=== PATIENT | male | born 2000 | race Caucasian/White ===

== ENCOUNTER 2022-08-23 15:43 | Emergency (ER) | payer OTHER, SELFPAY ==
--- NOTE | ~2022-08-23 | XR_ITS ---
EXAMINATION: XR foot LT min 3V DATE: 08/23/2022 16:05 INDICATION: Left foot pain TECHNIQUE: Dorsoplantar, lateral, and 2 oblique views of the left foot were obtained. COMPARISON: None. FINDINGS: Bone alignment is normal. There is no fracture. There is lateral soft tissue swelling of th e foot near the fifth metatarsal. A posterior calcaneal enthesophyte is noted. IMPRESSION: 1. Soft tissue swelling without acute osseous abnormality. Reviewed, dictated and finalized at location A.
[2022-08-23 15:57] VITALS: BP 121/69; PULSE 75; RESP 16; TEMP 36.5; O2SAT 99
[2022-08-23 16:00] VITALS: BP 121/69; PULSE 75; RESP 16; TEMP 36.5; O2SAT 99
--- NOTE | 2022-08-23 16:06 | ED.LOWEXIN ---
HPI - Extremity Injury (Lower) General Chief Complaint: Extremity Injury, Lower Stated Complaint: Left Foot Toe Pain Time Seen by Provider: 08/23/22 16:06 Source: patient and RN notes reviewed Mode of arrival: ambulatory Limitations: no limitations History of Present Illness HPI Narrative: 21-year-old male presents to the [facility] with his mom with complaints of left fourth 4th toe pain for 2 to 3 weeks. Patient reports that he was wrestling with a friend when after started having discomfort to the fourth toe. No treatment prior to arrival. States it felt fine last week yesterday after work started having some increased pain. No redness, swelling or bruising noted. Sensation intact. Capillary refill under 2 seconds. Related Data Allergies Allergy/AdvReac Type Severity Reaction Status Date / Time No Known Drug Allergies Allergy Unknown Other Verified 08/23/22 15:51 Review of Systems Review of Systems: All systems reviewed & are unremarkable except as noted in HPI and below Constitutional: Constitutional: Reports no additional constitutional complaints, Denies chills and Denies fever(s) Eyes: Eyes: Reports no additional eye complaints ENT: Reports system reviewed and no additional complaints, except as documented Cardiovascular: Cardiovascular: Reports no additional cardiovascular complaints Respiratory: Respiratory: Reports no additional respiratory complaints Gastrointestinal: Gastrointestinal: Reports no additional gastrointestinal complaints Musculoskeletal: Musculoskeletal: Reports as per HPI Comments: Fourth toe pain left foot Integumentary/Breasts: Skin/Breast: Reports system reviewed and no additional complaints, except as docu Neurologic: Reports system reviewed and no additional complaints, except as documented Psychiatric: Psychiatric: Reports no additional psychiatric complaints Allergic/Immunologic: Allergic/Immunologic: Reports no additional allergic/immunologic complaints PMFSH Past Medical History Medical History (Updated 08/23/22 @ 16:29 by Helga Nuñez APRN) No significant medical problems Social History Social History Smoking status: Never smoker Alcohol intake: never Comments At the time of my signature, I reviewed and agree with the nursing past medical, surgical, social, and family history. There is no relevant family history pertinent to the patient complaint. Exam Const: General: healthy appearing, no acute distress, alert and well nourished Nutritional Appearance: well nourished and obese Orientation/consciousness: patient oriented x3 Limitations: no limitations HENMT: Head: normal to inspection Ears: external ears normal Eyes: General: appearance normal, both eyes and all related structures Pupils: Equal, round and reactive pupils present Neck: Neck: normal visual inspection, no lymphadenopathy and no meningeal signs Chest: Chest palpation & inspection: normal inspection of the chest Resp: Effort & Inspection: normal respiratory effort and no use of accessory muscles Auscultation: clear to auscultation bilaterally, no crackles, no rales, no rhonchi and no wheezes Cardio: Rate: regular rate Rhythm: regular rhythm Back/Spine/Pelvis: Cervical Spine: normal cervical lordosis Thoracic/Lumbar Spine: thoracic and lumbar spine normal to inspection Skin: General skin exam: normal color Rashes: no rashes Wounds: no wounds Neuro: General: patient oriented x3, moves all extremities, no meningeal signs and no focal motor deficits Cranial nerves: Yes Equal, round and reactive pupils present Speech: normal speech Gait exam (Neuro): Normal gait present Extrem: General: normal to inspection, full ROM and capillary refill normal Left lower extremity: foot Details: normal capillary refill, tenderness Location: of another digit Location: the 4th digit and at the MTP joint, toes with normal ROM, no edema and vascular e
== END 2022-08-23 16:26 | disposition home or self-care (01) ==
PROVIDERS: Emergency Provider Nurse Practitioner
DX: S93.505A Unspecified sprain of left lesser toe(s), initial encounter (principal); X58.XXXA Exposure to other specified factors, initial encounter; Y93.83 Activity, rough housing and horseplay
CPT/HCPCS: 73630; 99213; G0463

== ENCOUNTER 2023-03-01 19:59 | Emergency (ER) | payer OTHER, SELFPAY ==
[2023-03-01 20:43] VITALS: BP 145/77; PULSE 87; RESP 20; TEMP 36.8; O2SAT 98
[2023-03-01 22:14] LABS: Basophils Absolute Auto 0.1 K/mm3 (0.0-0.1); Basophils Percent Auto 0.6 % (0.2-1.2); Eosinophils Absolute Auto 0.6 K/mm3 (0-0.3); Hematocrit 48.9 % (42.0-52.0); Hemoglobin 16.7 g/dL (14.0-18.0); Immature Granulocyte Absolute 0.02 K/mm3 (0.00-0.031); Immature Granulocyte Percent A 0.2 % (0-0.5); Lymphocytes Absolute Auto 2.54 K/mm3 (0.9-3.2); Lymphocytes Percent Auto 31.1 % (18.3-44.2); Mean Corpuscular HGB Conc 34.2 g/dl (32-36); Mean Corpuscular Hemoglobin 28.6 pg (26-34); Mean Corpuscular Volume 83.9 fl (80-100); Monocytes Absolute Auto 0.6 K/mm3 (0.1-0.6); Monocytes Percent Auto 7.8 % (2.6-8.5); Neutrophils Absolute Auto 4.4 K/mm3 (1.3-6.7); Neutrophils Percent Auto 53.3 % (45.5-73.1); Platelet Count Result 288 k/mm3 (150-375); Red Blood Count 5.83 M/mm3 (4.6-6.20); Red Cell Distribution Width 12.3 % (11.5-14.5); White Blood Count 8.2 K/mm3 (4.5-10.0)
[2023-03-01 22:24] LABS: Alanine Aminotransferase 39 U/L (6-50); Albumin Level 4.5 g/dL (3.5-5.1); Alkaline Phosphatase 81 U/L (38-126); Anion Gap 7 mmol/L (8-16); Aspartate Amino Transferase 41 U/L (17-59); Bilirubin,Total 0.6 mg/dL (0.2-1.3); Blood Urea Nitrogen 28 mg/dL (9-20); Calcium 8.9 mg/dL (8.4-10.2); Carbon Dioxide 32 mmol/L (22-30); Chloride 99 mmol/L (98-107); Estimated CRCL calculation 154 ml/min; Estimated Glomerular Filt Rate > 60; Glucose 98 mg/dL (65-110); Sodium 138 mmol/L (137-145)
[2023-03-01 22:31] LABS: INR 1.1; Prothrombin Time 13.4 Seconds (11.1-14.7)
[2023-03-01 22:32] LABS: Partial Thromboplastin Time 31.8 SECONDS (22.3-36.8)
[2023-03-01 22:45] VITALS: BP 140/66; PULSE 89
[2023-03-01 22:50] VITALS: BP 147/88; PULSE 95
[2023-03-01 22:51] VITALS: BP 134/84; PULSE 90
--- NOTE | 2023-03-01 23:14 | ED.GENADULT ---
HPI - General Adult General Chief complaint: GI Bleed Stated complaint: blood in stool Time Seen by Provider: 03/01/23 22:04 History of Present Illness HPI narrative: this is a 22-year-old male presenting ED with 1 week of rectal bleeding. Patient says that when he is having a bowel movement he is noticing red blood in the toilet. The stools are normal. He has no pain in the abdomen or the rectum. He is not on blood thinners. He has never had this happen before. He denies dizziness, lightheadedness, weakness or shortness of breath. Related Data Allergies Allergy/AdvReac Type Severity Reaction Status Date / Time No Known Drug Allergies Allergy Unknown Other Verified 08/23/22 15:51 [facility] Past Medical History Medical History No significant medical problems Social History Social History Smoking status: Never smoker Alcohol intake: never Exam Narrative: APPEARANCE: No apparent distress. Head: atraumatic. EYES: EOMI, NOSE: Atraumatic NECK: Trachea midline RESPIRATORY: No increased rate of breathing CARDIOVASCULAR: RRR, ABDOMINAL: Non-distended, soft nontender no guarding or rebound, rectal exam revealed no fissures or external hemorrhoids. Brown blood in the rectal vault that is Hemoccult positive. MUSCULOSKELETAl: No obvious deformities NEURO: Alert. Moving 4/4 extremities SKIN:: Warm, dry. Normal color PSYCHIATRIC: Normal affect Course Vital Signs Vital signs: Vital Signs Temperature 98.2 F 03/01/23 20:43 Pulse Rate 87 03/01/23 20:43 Respiratory Rate 20 03/01/23 20:43 Blood Pressure 145/77 H 03/01/23 20:43 Pulse Oximetry 98 03/01/23 20:43 Temperature 98.2 F 03/01/23 20:43 Pulse Rate 90 03/01/23 22:51 Respiratory Rate 20 03/01/23 20:43 Blood Pressure 134/84 03/01/23 22:51 Pulse Oximetry 98 03/01/23 20:43 Medical Decision Making [facility] Narrative Medical decision making narrative: -Presentation: 22-year-old male presenting ED with painless rectal bleeding -DDX includes but is not limited to: internal hemorrhoids, diverticulosis, AVM -Co-morbidities complicating care: none -Social determinants of health: patient is in college, lives with roommates -External Chart Review: none -Hx from independent Sources: mother bedside -Discussion of Management/Consultants: none -Independent interpretation of studies: vital signs are stable. Hemoglobin is 16.7. Metabolic panel is unremarkable. Rectal exam was Hemoccult positive but no other acute findings. Dx tests considered but not ordered: CT abdomen pelvis- no tenderness to the abdomen. -Procedures: -Interventions: -Shared decision making / Disposition: patient is stable with normal hemoglobin. Patient be discharged with primary care and GI follow-up. -RX Vital Signs Vital Signs: Vital Signs Temperature 98.2 F 03/01/23 20:43 Pulse Rate 87 03/01/23 20:43 Respiratory Rate 20 03/01/23 20:43 Blood Pressure 145/77 H 03/01/23 20:43 Pulse Oximetry 98 03/01/23 20:43 Temperature 98.2 F 03/01/23 20:43 Pulse Rate 90 03/01/23 22:51 Respiratory Rate 20 03/01/23 20:43 Blood Pressure 134/84 03/01/23 22:51 Pulse Oximetry 98 03/01/23 20:43 Lab Data 03/01/23 21:50 03/01/23 21:50 Labs: Lab Results 03/01/23 03/01/23 03/01/23 Range/Units 21:50 21:50 21:50 WBC 8.2 (4.5-10.0) K/mm3 RBC 5.83 (4.6-6.20) M/mm3 Hgb 16.7 (14.0-18.0) g/dL Hct 48.9 (42.0-52.0) % MCV 83.9 (80-100) fl MCH 28.6 (26-34) pg MCHC 34.2 (32-36) g/dl RDW 12.3 (11.5-14.5) % Plt Count 288 (150-375) k/mm3 MPV 10.0 (7.4-10.4) fl Immature Gran % (Auto) 0.2 (0-0.5) % Neut % (Auto) 53.3 (45.5-73.1) % Lymph % (Auto) 31.1 (18.3-44.2) % Luna % (Auto) 7.8 (2.6-8.5) % Eos % (Auto) 7.0 H (0-
[2023-03-01 23:53] VITALS: BP 131/89; PULSE 69; RESP 18; TEMP 36.6; O2SAT 99
== END 2023-03-01 23:54 | disposition home or self-care (01) ==
PROVIDERS: Emergency Provider Emergency Medicine
DX: K92.1 Melena (principal)
CPT/HCPCS: 36415; 80053; 85025; 85610; 85730; 86850; 86900; 86901; 99283

== ENCOUNTER → 2023-12-29 09:28 | Outpatient (CLI) | payer OTHER, SELFPAY ==
--- NOTE | ~2023-12-29 | XR_ITS ---
Right Shoulder Technique: AP and axillary views were obtained. Clinical History: Pain Findings: No fracture or dislocation is seen. Osseous alignment is anatomic. The glenohumeral and acr omioclavicular joint spaces are preserved. Soft tissues are unremarkable. Impression: Unremarkable right shoulder radiographs. Reviewed, dictated and finalized at [facility]. [employer] Impression: Unremarkable right shoulder radiographs.
== END ==
PROVIDERS: PCP Emergency Medicine; Visit Provider Emergency Medicine
DX: M25.511 Pain in right shoulder (principal)
CPT/HCPCS: 73030

== ENCOUNTER 2025-02-27 10:27 | Emergency (ER) | payer OTHER, SELFPAY ==
[2025-02-27 10:38] VITALS: BP 140/72; PULSE 65; RESP 16; TEMP 36.8; O2SAT 99
--- NOTE | 2025-02-27 10:43 | ED_ITS ---
HPI - URI/Sore Throat General Chief Complaint: Upper Respiratory Infection Stated Complaint: Sore Throat Time Seen by Provider: 02/27/25 10:40 Source: patient Mode of arrival: ambulatory Limitations: no limitations History of Present Illness HPI Narrative: Patient presents to [facility] for a sore throat that started yesterday. Patient has not been taking any OTC medications for pain relief. He states that he has a known exposure to Strep. Currently, he is rating his pain a 6/10. Denies any shortness of breath or difficulty swallowing. Related Data Home Medications ?Medication ?Instructions ?Recorded ?Confirmed ?Last Taken ?Type sumatriptan succinate 100 mg tablet 100 mg PO BID PRN migraine headache 02/27/25 02/27/25 Unknown History tramadol 50 mg tablet 50 mg PO Q6H PRN migraine headache 02/27/25 02/27/25 Unknown History Allergies Allergy/AdvReac Type Severity Reaction Status Date / Time No Known Drug Allergies Allergy Unknown Other Verified 02/27/25 10:43 Review of Systems Review of Systems: CONSTITUTIONAL: Denies body aches, fever, chills, or sweats. EYES: Denies visual changes, redness, or discharge. ENT: Reports sore throat. Denies rhinorrhea, congestion, or otalgia. CARDIOVASCULAR: Denies chest pain, palpitations, or edema. RESPIRATORY: Denies dyspnea. GASTROINTESTINAL: Denies abdominal pain, nausea, vomiting, or diarrhea. SKIN: Denies rash NEUROLOGIC: Denies headache All systems reviewed & are unremarkable except as noted in HPI and below PMFSH Past Medical History Medical History No significant medical problems Social History Social History Smoking status: Never smoker Alcohol intake: never Comments At time of signature, I have reviewed and agree with nursing past medical, surgical, social and family history unless otherwise noted. Please see nursing chart for further information. There is no relevant family history pertinent to the presenting complaint. Exam Narrative: GENERAL: Ill-appearing, ?no acute distress. EYES: ?conjunctivae clear ENT: Mucous membranes moist. TM pearly mast with normal light reflex bilaterally; no tragal tenderness. Oropharynx erythematous without lesions. Tonsils enlarged and without exudate. No drooling, no hoarseness, no trismus, uvula midline. No tripod positioning, hot potato voice, or soft palate swelling. NECK: Supple. No lymphadenopathy CHEST: Clear to auscultation, breath sounds equal. ?No respiratory distress, speaks in full sentences. HEART: Regular rate and rhythm. No murmur heard. SKIN: Warm, dry, no rash. NEURO: Alert and oriented x3.? Course Course Level of Care: Express Care Visit Vital Signs Vital signs: Vital Signs Temperature 98.3 F 02/27/25 10:38 Pulse Rate 65 02/27/25 10:38 Respiratory Rate 16 02/27/25 10:38 Blood Pressure 140/72 02/27/25 10:38 Pulse Oximetry 99 02/27/25 10:38 Oxygen Delivery Room Air 02/27/25 10:38 Temperature 98.3 F 02/27/25 10:38 Pulse Rate 65 02/27/25 10:38 Respiratory Rate 16 02/27/25 10:38 Blood Pressure 140/72 02/27/25 10:38 Pulse Oximetry 99 02/27/25 10:38 Oxygen Delivery Room Air 02/27/25 10:38 Reviewed MDM - URI/Sore Throat MDM Narrative Medical decision making narrative: Discussed physical exam findings. Treating patient with antibiotic due to known exposure and physical exam findings. Advised supportive measures and signs/symptoms to go to the ER. Pt is appropriate for outpatient treatment and follow up. Differential Diagnosis Differential diagnosis: Likely upper respiratory infection, viral infection, pharyngitis and other (strep) Lab Data Labs: Lab Results 02/27/25 Range/Units 10:35 POC Grp A Strep Screen Negative (Negative) Critical Care Time Critical Care Time Critical Care Time: No Discharge Plan Discharge Clinical Impression: Strep throat Patient Disposition: Home Condition: Stable Instructions: Antibiotic Form, Strep Throat (ED) Additional Instructions: Recommendations: Take antibiotic as prescribed. Tylenol every 8 hours as needed for pain/fever. Soft foods, cool liquids, warm tea. Gargle with warm saltwater twice a day. Chloraseptic spray and throat lozenges. Rest and stay hydrated. --Follow up with your PCP --Go to the ER immediately if you cannot swallow your saliva, trouble breathing/wheezing, throat swelling, pain is persistent and severe Patient Language: Azeri Prescriptions: New amoxicillin 500 mg tablet 500 mg PO Q12H 10 Days Qty: 20 0RF No Action sumatriptan succinate 100 mg tablet 100 mg PO BID PRN (Reason: migraine headache) tramadol 50 mg tablet 50 mg PO Q6H PRN (Reason: migraine headache) Follow-up/Referrals: Ok Manriquez MD [Primary Care Provider] - Stand Alone Forms: Work/School Release IP Time of Disposition: 10:56
[2025-02-27 10:52] LABS: EDSTREPNEGPOS1 Negative (Negative)
== END 2025-02-27 11:07 | disposition home or self-care (01) ==
PROVIDERS: PCP Emergency Medicine
DX: J02.0 Streptococcal pharyngitis (principal)
CPT/HCPCS: 87081; 87880; 99213; G0463